=== PATIENT | female | born 1990 | race Hispanic/Latino ===

== ENCOUNTER 2018-02-05 18:34 | Emergency (ER) | payer SELFPAY ==
[2018-02-05 19:03] LABS: BASOPHILS % (AUTO) 0.4 % (0.0-5.0); EOSINOPHILS % (AUTO) 1.7 % (0.0-8.0); HEMATOCRIT 40.3 % (36-48); LYMPHOCYTES % (AUTO) 32.3 % (21.0-51.0); MEAN CORPUSCULAR HEMOGLOBIN 29.6 pg (27.0-33.0); MEAN CORPUSCULAR HGB CONC 32.8 g/dL (32.0-36.0); MEAN CORPUSCULAR VOLUME 90.1 fL (79-99); MONOCYTES % (AUTO) 6.8 % (3.0-13.0); NEUTROPHILS % (AUTO) 58.8 % (40.0-77.0); NUCLEATED RED BLOOD CELLS 0.1 % (0.0-0.19); PLATELET COUNT (AUTO) 242 K/uL (130-400); RED BLOOD CELL COUNT(AUTO) 4.47 MIL/uL (4.00-5.50); RED CELL DISTRIBUTION WIDTH 12.6 % (11.0-15.5); WHITE BLOOD COUNT (AUTO) 9.6 K/uL (4.8-10.8)
[2018-02-05 19:14] LABS: CREATININE 0.9 mg/dL (0.5-1.5); POTASSIUM 3.4 mmol/L (3.5-5.1)
[2018-02-05 19:19] LABS: ALBUMIN 3.5 g/dL (3.5-5.0); BILIRUBIN,TOTAL 0.2 mg/dL (0.2-1.0); TOTAL PROTEIN, SERUM 7.6 g/dL (6.0-8.3)
[2018-02-05 19:54] LABS: INR 0.95 (0.85-1.15)
[2018-02-05 19:55] LABS: PARTIAL THROMBOPLASTIN TIME 29.4 SEC (26.3-35.5)
== END 2018-02-05 20:24 | disposition home or self-care (01) ==
LOC: EDH 18:34
DX: F41.9 Anxiety disorder, unspecified (principal); R07.89 Other chest pain; E66.9 Obesity, unspecified; Z68.43 Body mass index [BMI] 50.0-59.9, adult; Z87.442 Personal history of urinary calculi
CPT/HCPCS: 36415; 71045; 80053; 82550; 84484; 85025; 85610; 85730; 93005

== ENCOUNTER 2019-02-23 15:29 | Emergency (ER) | payer OTHER ==
[2019-02-23] MEDS ORDERED: DEXAMETHASONE SOD PHOSPHATE 10MG/ML 1ML VIAL ONE (16:00)
== END 2019-02-23 16:52 | disposition home or self-care (01) ==
LOC: EDH 15:29
DX: J20.9 Acute bronchitis, unspecified (principal); Z87.442 Personal history of urinary calculi
CPT/HCPCS: 96372; 99283; J1100

== ENCOUNTER 2020-03-21 12:37 | Emergency (ER) | payer SELFPAY ==
[2020-03-21] MEDS ORDERED: ACETAMINOPHEN 325 MG TAB ONE (13:31)
[2020-03-21] MEDS ORDERED: IBUPROFEN 600 MG TABLET ONE (13:31)
[2020-03-21] MEDS ORDERED: SODIUM CHLORIDE 0.9% 1000ML 1,000 ML IV ONE (13:32)
[2020-03-21 13:38] LABS: BASOPHILS % (AUTO) 0.2 % (0.0-5.0); EOSINOPHILS % (AUTO) 0.2 % (0.0-8.0); LYMPHOCYTES % (AUTO) 26.6 % (21.0-51.0); MEAN CORPUSCULAR HEMOGLOBIN 28.5 pg (27.0-33.0); MEAN CORPUSCULAR HGB CONC 32.5 g/dL (32.0-36.0); MEAN CORPUSCULAR VOLUME 87.8 fL (79-99); MONOCYTES % (AUTO) 6.6 % (3.0-13.0); NEUTROPHILS % (AUTO) 66.2 % (40.0-77.0); PLATELET COUNT (AUTO) 199 K/uL (130-400); RED BLOOD CELL COUNT(AUTO) 5.01 MIL/uL (4.00-5.50); RED CELL DISTRIBUTION WIDTH 12.3 % (11.0-15.5); WHITE BLOOD COUNT (AUTO) 5.8 K/uL (4.8-10.8)
[2020-03-21 13:47] LABS: POTASSIUM 3.5 mmol/L (3.5-5.1)
[2020-03-21 13:52] LABS: ALBUMIN 3.6 g/dL (3.5-5.0); BILIRUBIN,TOTAL 0.3 mg/dL (0.2-1.0); TOTAL PROTEIN, SERUM 7.7 g/dL (6.0-8.3)
[2020-03-21 14:04] LABS: B-TYPE NATRIURETIC PEPTIDE < 5 pg/mL (0-100)
[2020-03-21 14:35] LABS: APPEARANCE,URINE TURBID (CLEAR); BILIRUBIN,URINE SMALL (NEGATIVE); COLOR,URINE RED (YELLOW); GLUCOSE, URINE (UA) NEGATIVE (NEGATIVE); KETONES,URINE 15 mg/dL (NEGATIVE); LEUKOCYTE ESTERASE ,URINE MODERATE (NEGATIVE); NITRATE,URINE POSITIVE (NEGATIVE); OCCULT BLOOD,URINE LARGE (NEGATIVE); PH,URINE 6.5 (5.0-8.0); PROTEIN,URINE >=300 mg/dL (NEGATIVE)
[2020-03-21 14:42] LABS: HCG,QUAL RESULT NEGATIVE (NEGATIVE)
[2020-03-21 14:49] LABS: BACTERIA,URINE Many /HPF (None Seen); MUCUS,URINE Moderate LPF (None Seen); RBC,URINE >100 /HPF (0-1); SQUAMOUS EPITHELIAL CELL,UR Moderate /HPF (0-2)
[2020-03-21] MEDS ORDERED: IOHEXOL 350 MG/ML 100ML INFUS..BTL IV ONE (16:07)
== END 2020-03-21 17:48 | disposition home or self-care (01) ==
LOC: EDH 12:37
DX: J18.9 Pneumonia, unspecified organism (principal); N39.0 Urinary tract infection, site not specified; Z20.828 Contact with and (suspected) exposure to other viral communicable diseases; Z90.49 Acquired absence of other specified parts of digestive tract; Z87.442 Personal history of urinary calculi
CPT/HCPCS: 36415; 71045; 71275; 80053; 81001; 81025; 82550; 83605; 83880; 84484; 85025; 87040 ×2; 87088; 87426; 93005; 96360; 96361; 99285; J7030; Q9967; U0003

== ENCOUNTER 2021-11-25 16:39 | Emergency (ER) | payer OTHER ==
[~2021-11-25] VITALS: Ht 160 cm; Wt 142.0 kg
[2021-11-25 16:57] LABS: APPEARANCE,URINE CLOUDY (CLEAR); BILIRUBIN,URINE NEGATIVE (NEGATIVE); COLOR,URINE YELLOW (YELLOW); GLUCOSE, URINE (UA) NEGATIVE (NEGATIVE); KETONES,URINE 15 mg/dL (NEGATIVE); LEUKOCYTE ESTERASE ,URINE TRACE (NEGATIVE); NITRATE,URINE NEGATIVE (NEGATIVE); OCCULT BLOOD,URINE TRACE-INTACT (NEGATIVE); PH,URINE 6.5 (5.0-8.0); PROTEIN,URINE TRACE mg/dL (NEGATIVE); UROBILINOGEN,URINE 0.2 mg/dL (0.2-1.0)
[2021-11-25 17:01] LABS: BASOPHILS % (AUTO) 0.4 % (0.0-5.0); EOSINOPHILS % (AUTO) 0.9 % (0.0-8.0); HEMATOCRIT 40.3 % (36-48); LYMPHOCYTES % (AUTO) 22.3 % (21.0-51.0); MEAN CORPUSCULAR HEMOGLOBIN 29.2 pg (27.0-33.0); MEAN CORPUSCULAR VOLUME 88.4 fL (79-99); MONOCYTES % (AUTO) 6.6 % (3.0-13.0); NEUTROPHILS % (AUTO) 69.4 % (40.0-77.0); PLATELET COUNT (AUTO) 289 K/uL (130-400); RED BLOOD CELL COUNT(AUTO) 4.56 MIL/uL (4.00-5.50); RED CELL DISTRIBUTION WIDTH 12.4 % (11.0-15.5); WHITE BLOOD COUNT (AUTO) 10.2 K/uL (4.8-10.8)
[2021-11-25 17:06] LABS: BACTERIA,URINE Few /HPF (None Seen); MUCUS,URINE Rare LPF (None Seen); SQUAMOUS EPITHELIAL CELL,UR Moderate /HPF (0-2)
[2021-11-25 17:13] LABS: CREATININE 1.1 mg/dL (0.5-1.5); POTASSIUM 3.9 mmol/L (3.5-5.1)
[2021-11-25 17:18] LABS: ALBUMIN 3.5 g/dL (3.5-5.0); TOTAL PROTEIN, SERUM 7.6 g/dL (6.0-8.3)
[2021-11-25 18:58] VITALS: BP 140/87
[2021-11-25] MEDS ORDERED: FAMO-136 PO (19:12)
[2021-11-25] MEDS ORDERED: MAG/ALUM/SIMETH 30 ML UDCUP PO ONE (19:30)
[2021-11-25] MEDS ORDERED: LIDOCAINE HCL 2% VISCOUS 15 ML UDCUP PO ONE (19:30)
[2021-11-25] MEDS ORDERED: DICYCLOMINE HCL 10 MG/5 ML ML PO ONE (19:30)
[2021-11-25] MEDS ORDERED: FAMOTIDINE 20MG TAB PO ONE (19:30)
== END 2021-11-25 19:34 | disposition home or self-care (01) ==
LOC: EDH 16:39
DX: K21.00 Gastro-esophageal reflux disease with esophagitis, without bleeding (principal); R07.89 Other chest pain; Z20.822 Contact with and (suspected) exposure to COVID-19; E78.00 Pure hypercholesterolemia, unspecified; E66.01 Morbid (severe) obesity due to excess calories; Z68.43 Body mass index [BMI] 50.0-59.9, adult
CPT/HCPCS: 99285; 71045; 87635; 84484; 80053; 85025; 87804 ×2; 81001; 81025; 36415; 93005; C9803

== ENCOUNTER 2022-05-27 08:53 | Emergency (ER) | payer OTHER ==
[~2022-05-27] VITALS: Ht 160 cm; Wt 145.1 kg
[~2022-05-27 08:53] MED LIST: FAMO-136 PO
[2022-05-27] MEDS ORDERED: KETOROLAC 30MG VIAL (30MG/ML) ONE (09:28)
[2022-05-27] MEDS ORDERED: ORPHENADRINE CITRATE 30 MG/ML ML IVP ONE (09:30)
[2022-05-27] MEDS ORDERED: KETOROLAC 15MG/ML VIAL (15MG/ML) IV ONE (09:30)
[2022-05-27] MEDS ORDERED: 0.9% NACL 500ML IV.SOLN 500 ML IV ONE (09:30)
[2022-05-27 09:32] LABS: HCG,QUALITATIVE URINE NEGATIVE (NEGATIVE)
[2022-05-27 09:32] LABS: BASOPHILS % (AUTO) 0.3 % (0.0-5.0); EOSINOPHILS % (AUTO) 0.9 % (0.0-8.0); HEMATOCRIT 41.5 % (36-48); LYMPHOCYTES % (AUTO) 21.9 % (21.0-51.0); MEAN CORPUSCULAR VOLUME 90.4 fL (79-99); MONOCYTES % (AUTO) 5.3 % (3.0-13.0); NEUTROPHILS % (AUTO) 71.2 % (40.0-77.0); PLATELET COUNT (AUTO) 281 K/uL (130-400); RED BLOOD CELL COUNT(AUTO) 4.59 MIL/uL (4.00-5.50); RED CELL DISTRIBUTION WIDTH 12.4 % (11.0-15.5); WHITE BLOOD COUNT (AUTO) 10.8 K/uL (4.8-10.8)
[2022-05-27 09:34] LABS: BILIRUBIN,URINE NEGATIVE (NEGATIVE); COLOR,URINE YELLOW (YELLOW); GLUCOSE, URINE (UA) NEGATIVE (NEGATIVE); KETONES,URINE NEGATIVE (NEGATIVE); LEUKOCYTE ESTERASE ,URINE TRACE Leu/uL (NEGATIVE); NITRATE,URINE NEGATIVE (NEGATIVE); OCCULT BLOOD,URINE SMALL (NEGATIVE); PROTEIN,URINE NEGATIVE (NEGATIVE); UROBILINOGEN,URINE 0.2 mg/dL (0.2-1.0)
[2022-05-27 09:37] LABS: APPEARANCE,URINE CLOUDY (CLEAR)
[2022-05-27 09:41] LABS: BACTERIA,URINE Few /HPF (None Seen); MUCUS,URINE Moderate LPF (None Seen); WBC,URINE 0-1 /HPF (0-1)
[2022-05-27 09:54] LABS: ALBUMIN 3.3 g/dL (3.5-5.0); TOTAL PROTEIN, SERUM 7.6 g/dL (6.0-8.3)
[2022-05-27] MEDS ORDERED: CYCL10TA16 PO (11:43)
[2022-05-27] MEDS ORDERED: NAPR500T6 PO (11:43)
[2022-05-27 12:20] VITALS: BP 127/74
== END 2022-05-27 12:21 | disposition home or self-care (01) ==
LOC: EDH 08:53
DX: M54.50 Low back pain, unspecified (principal); Z90.49 Acquired absence of other specified parts of digestive tract; Z98.890 Other specified postprocedural states
CPT/HCPCS: 99285; 74176; 96374; 96361; 96375; 80053; 85025; 81001; 81025; 36415; J7040; J1885; J2360

== ENCOUNTER 2022-08-22 11:20 | Emergency (ER) | payer OTHER ==
[~2022-08-22] VITALS: Ht 160 cm; Wt 145.1 kg
[~2022-08-22 11:20] MED LIST changes: +CYCL10TA16 PO; +NAPR500T6 PO
[2022-08-22 12:13] LABS: HEMATOCRIT 39.5 % (36-48); MEAN CORPUSCULAR HEMOGLOBIN 29.6 pg (27.0-33.0); MEAN CORPUSCULAR HGB CONC 32.9 g/dL (32.0-36.0); RED BLOOD CELL COUNT(AUTO) 4.39 MIL/uL (4.00-5.50); RED CELL DISTRIBUTION WIDTH 12.2 % (11.0-15.5); WHITE BLOOD COUNT (AUTO) 7.2 K/uL (4.8-10.8)
[2022-08-22 12:27] LABS: ALBUMIN 3.4 g/dL (3.5-5.0); CREATININE 0.9 mg/dL (0.5-1.5); POTASSIUM 4.3 mmol/L (3.5-5.1); TOTAL PROTEIN, SERUM 7.5 g/dL (6.0-8.3)
[2022-08-22] MEDS ORDERED: MECLIZINE HCL 25 MG TABLET PO ONE (12:30)
[2022-08-22] MEDS ORDERED: ONDANSETRON 4MG TABLET PO ONE (12:30)
[2022-08-22 12:32] LABS: APPEARANCE,URINE CLOUDY (CLEAR); BILIRUBIN,URINE NEGATIVE (NEGATIVE); COLOR,URINE LIGHT-YELLOW (YELLOW); GLUCOSE, URINE (UA) NEGATIVE (NEGATIVE); KETONES,URINE NEGATIVE (NEGATIVE); LEUKOCYTE ESTERASE ,URINE 500 Leu/uL (NEGATIVE); NITRATE,URINE NEGATIVE (NEGATIVE); OCCULT BLOOD,URINE NEGATIVE (NEGATIVE); PH,URINE 6.5 (5.0-8.0); PROTEIN,URINE NEGATIVE (NEGATIVE); UROBILINOGEN,URINE 0.2 mg/dL (0.2-1.0)
[2022-08-22 12:39] LABS: BACTERIA,URINE RARE /HPF (None Seen); MUCUS,URINE RARE LPF (None Seen); SQUAMOUS EPITHELIAL CELL,UR MOD /HPF (0-2)
[2022-08-22 12:40] LABS: HCG,QUALITATIVE URINE NEGATIVE (NEGATIVE)
[2022-08-22] MEDS ORDERED: ONDANSETRON ODT 4MG TAB ONE (12:47)
[2022-08-22] MEDS ORDERED: MECL-160 PO (13:50)
[2022-08-22] MEDS ORDERED: ONDA-104 PO (13:50)
[2022-08-22] MEDS ORDERED: CEPH500C2 PO (13:50)
[2022-08-22 14:00] VITALS: BP 149/90
== END 2022-08-22 14:03 | disposition home or self-care (01) ==
LOC: EDH 11:20
DX: N39.0 Urinary tract infection, site not specified (principal); R42 Dizziness and giddiness; Z79.899 Other long term (current) drug therapy; Z90.49 Acquired absence of other specified parts of digestive tract; Z98.890 Other specified postprocedural states
CPT/HCPCS: 36415; 70450; 80053; 81001; 81025; 85027; 87088

== ENCOUNTER 2023-07-29 13:14 | Emergency (ER) | payer OTHER ==
[~2023-07-29] VITALS: Ht 160 cm; Wt 139.7 kg
[~2023-07-29 13:14] MED LIST changes: +CEPH500C2 PO; +MECL-302 PO; +ONDA-104 PO
[2023-07-29 13:46] LABS: HEMATOCRIT 40.3 % (36-48); MEAN CORPUSCULAR HEMOGLOBIN 29.7 pg (27.0-33.0); MEAN CORPUSCULAR HGB CONC 33.5 g/dL (32.0-36.0); MEAN CORPUSCULAR VOLUME 88.6 fL (79-99); RED BLOOD CELL COUNT(AUTO) 4.55 MIL/uL (4.00-5.50); RED CELL DISTRIBUTION WIDTH 12.4 % (11.0-15.5); WHITE BLOOD COUNT (AUTO) 10.2 K/uL (4.8-10.8)
[2023-07-29 13:47] LABS: APPEARANCE,URINE TURBID (CLEAR); BILIRUBIN,URINE NEGATIVE (NEGATIVE); COLOR,URINE LIGHT-ORANGE (YELLOW); GLUCOSE, URINE (UA) NEGATIVE (NEGATIVE); KETONES,URINE NEGATIVE (NEGATIVE); LEUKOCYTE ESTERASE ,URINE 500 Leu/uL (NEGATIVE); NITRATE,URINE NEGATIVE (NEGATIVE); OCCULT BLOOD,URINE SMALL (NEGATIVE); PH,URINE 5.5 (5.0-8.0); PROTEIN,URINE 30 mg/dL (NEGATIVE); UROBILINOGEN,URINE 0.2 mg/dL (0.2-1.0)
[2023-07-29 13:48] LABS: ADD UA MICROSCOPIC YES
[2023-07-29 13:51] LABS: BACTERIA,URINE MANY /HPF (None Seen); MUCUS,URINE FEW LPF (None Seen); RBC,URINE 51-100 /HPF (0-1); SQUAMOUS EPITHELIAL CELL,UR MANY /HPF (0-2); WBC CLUMP FEW /HPF (0-1); WBC,URINE 26-50 /HPF (0-1)
[2023-07-29 13:51] LABS: CREATININE 0.9 mg/dL (0.5-1.0)
[2023-07-29] MEDS: MECLIZINE HCL 25 MG TABLET PO ONE (14:43)
[2023-07-29 15:06] LABS: MAGNESIUM 2.3 mg/dL (1.80-2.40); THYROID STIMULATING HORMONE 1.54 uIU/mL (0.36-3.74)
[2023-07-29] MEDS ORDERED: MECL-302 PO (17:07)
[2023-07-29] MEDS ORDERED: CEPH500T PO (17:07)
[2023-07-29] MEDS: CEPHALEXIN 500 MG CAPSULE PO ONE (17:10)
[2023-07-29 17:30] VITALS: BP 138/72; PULSE 71; RESP 16; O2SAT 100
== END 2023-07-29 17:30 | disposition home or self-care (01) ==
LOC: EDH 13:14
DX: N39.0 Urinary tract infection, site not specified (principal); E83.51 Hypocalcemia; Z79.899 Other long term (current) drug therapy; Z90.49 Acquired absence of other specified parts of digestive tract; Z98.890 Other specified postprocedural states
CPT/HCPCS: 36415; 80048; 81001; 83735; 84443; 85027; 87088